=== PATIENT | female | born 1975 | race Caucasian/White ===

== ENCOUNTER 2017-06-15 08:53 | Inpatient (IN) | payer BC ==
--- NOTE | 2017-06-15 09:31 | PDOC ---
Attending Attestation - Resident Resident Name: Lyssa Anthony - HPI HPI: 06/15/17 11:15 Pt presents to the ED complaining of left breast pain and tenderness that began 4 days ago. Patient has been taking cipro for the last two days, but the redness, pain and swelling have continued to worsen. Denies fever, nausea and vomiting or other signs of systemic infection. Of note, patient reports a long standing history of a breast cyst in the same location. Patient also has a history of chronic uncontrolled DM. Reports non compliance with her metformin. - Physicial Exam PE: 06/15/17 11:17 Agree with resident exam. L breast has an area of cellulitis that is approximately 6 cm in diameter and an area of induration that is approximately 2 cm in diameter. PAtient is awake, alert and well appearing. - Medical Decision Making 06/15/17 11:18 Pt presents to the ED with cellulitis and likely abscess of the left breast. Will obtain repeat US, likely do I and D, discuss with CURATOR OF COLLECTIONS. Patient also has apparent failure of outpatient antibiotics---will treat with Iv ceftraxione and admit for obs.
--- NOTE | 2017-06-15 09:55 | PDOC ---
History of Present Illness - General Chief Complaint: Abscess Boil Stated Complaint: ABSCESS ON LT BREAST Time Seen by Provider: 06/15/17 09:20 History Source: Patient Exam Limitations: No Limitations - History of Present Illness Initial Comments: This is a YOF with h/o NIDDM (non-adherent to Metformin regimen) and known chronic left breast cyst who p/w 4 days of worsening pain, swelling, redness, warmth, and a worsening lump to her left medial breast in the same location as her known cyst. She has been on ciprofloxacin for the past two days without improvement. She has never had an abscess or skin infection in her life. She notes difficulty taking in a full breath secondary to the pain, as well as slight swelling of a lymph node in her left axilla, but denies any additional symptoms (no fever, chills, nausea, vomiting, additional rashes or skin lesions , headache, dizziness, or other symptoms. Past History - Past Medical History Allergies/Adverse Reactions: Allergies Allergy/AdvReac Type Severity Reaction Status Date / Time No Known Drug Allergies Allergy Verified 06/15/17 09:03 Home Medications: Ambulatory Orders Ciprofloxacin [Cipro (Restricted To Id)] 500 mg PO BID 06/15/17 Anemia: Yes ("FROM HEAVY MENSTRAL BLEEDING") Asthma: No Cancer: No Cardiac Disorders: No CVA: No COPD: No CHF: No Dementia: No Diabetes: Yes (non compliant with medication) GI Disorders: No Disorders: No HTN: No Hypercholesterolemia: No Liver Disease: No Seizures: No Thyroid Disease: No - Surgical History Abdominal Surgery: No Appendectomy: No Cardiac Surgery: No Cholecystectomy: No Lung Surgery: No Neurologic Surgery: No Orthopedic Surgery: No - Suicide/Smoking/Psychosocial Hx Smoking History: Never smoked Have you smoked in the past 12 months: No Hx Alcohol Use: No Drug/Substance Use Hx: No Substance Use Type: None Review of Systems - Review of Systems Able to Perform ROS?: Yes Constitutional: No: Chills, Fever, Unexplained wgt Loss HEENTM: No: Nose Congestion, Throat Pain Respiratory: No: Cough, Shortness of Breath Cardiac (ROS): Yes: Other (left breast pain). No: Chest Pain, Palpitations ABD/GI: No: Constipated, Diarrhea, Nausea, Vomiting : No: Burning, Dysuria Musculoskeletal: No: Back Pain, Neck Pain Integumentary: Yes: Other (left breast pain/swelling). No: Bruising, Rash Neurological: No: Headache, Numbness, Tingling, Weakness, Dizziness Endocrine: No: Unexplained Weight Gain, Unexplained Weight Loss Hematologic/Lymphatic: Yes: Lymph Node Abnormalities (left axilla swollen lymph node) *Physical Exam - Vital Signs Last Vital Signs Temp Pulse Resp BP Pulse Ox 97.6 F 89 18 124/73 96 06/15/17 08:58 06/15/17 08:58 06/15/17 08:58 06/15/17 08:58 06/15/17 08:58 - Physical Exam General Appearance: Yes: Nourished, Appropriately Dressed, Obese, Other (awake and alert adult female accompanied by family member at bedside, answering questions appropriately). No: Apparent Distress HEENT: positive: EOMI, Normal Voice, Hearing Grossly Normal. negative: Scleral Icterus (R), Scleral Icterus (L), Nasal Congestion Neck: positive: Trachea midline, Supple. negative: Tender, Rigid Respiratory/Chest: positive: Lungs Clear, Normal Breath Sounds. negative: Respiratory Distress, Crackles, Rhonchi, Stridor, Wheezing Cardiovascular: positive: Regular Rhythm, Regular Rate, S1, S2. negative: Edema , JVD, Murmur Gastrointestinal/Abdominal: positive: Normal Bowel Sounds, Soft. negative: Tender, Organomegaly, Pulsatile Mass, Guarding Lymphatic: positive: Adenopathy (left axilla), Tenderness (left axilla) Musculoskeletal: positive: Normal Inspection. negative: Decreased Range of Motion, Vertebral Tenderness Extremity: positive: Normal Capillary Refill, Normal Inspection, Normal Range of Motion. negative: Tender, Cyanosis Integumentary: positive: Dry, Warm, Other (left medial breast (just lateral to the sternum) with 8x5cm area of erythema/warmth with central 2x2cm area of induration and fluctuance with bright red erythema). negative: Bruising Neurologic: positive: intellectual property paralegal II-XII NML intact (grossly), Fully Oriented, Alert, Normal Mood/Affect, Normal Response, Motor Strength 5/5 ED Treatment Course - LABORATORY CBC & Chemistry Diagram: 06/15/17 09:45 06/15/17 09:45 - ADDITIONAL ORDERS Additional order review: Laboratory Results 06/15/17 09:21 POC Glucometer 240.01706 06/15/17 09:21 POC Glucometer [id number] - RADIOLOGY Radiology Studies Ordered: Category Date Time Status BREAST US LEFT LIMITED [US] Stat Ultrasound 06/15/17 09:33 Ordered Medical Decision Making - Medical Decision Making 41 YOF with h/o NIDDM (non-adherent to metformin regimen) who p/w left breast painful mass x4 days. VS wnl, patient in mild distress, ttp medial left breast, skin is inflamed, induration/fluctuance with surrounding cellulitis. Ordered is [facility] CMP US left breast, blood culture, ceftriaxone, Percocet. 06/15/17 12:50 Called [id number], cannot get in touch. Ordered Toradol as Pt c/o pain. 06/15/17 12:58 Spoke with Ultrasound, they also are unable to get ahold of [facility]. They note that at times they send these studies to [facility] during the day and I ask them to do this. 06/15/17 13:[address] Acosta who recommends consult with Gen Surg for I&D. Spoke with Dr. Coy who will come to the ED for I&D shortly. *DC/Admit/Observation/Transfer Diagnosis at time of Disposition: Breast abscess, Hyperglycemia Diabetes mellitus Qualifiers: Diabetes mellitus type: other specified (including VONNIE) Diabetes mellitus complication status: with unspecified complications Diabetes mellitus joint terminal attack controller insulin use: unspecified skilled nursing insulin use status Qualified Code(s): E13.8 - Other specified diabetes mellitus with unspecified complications - Discharge Dispostion Condition at time of disposition: Guarded Admit: Yes - Referrals Referrals: Marcellus Edwards MD [Primary Care Provider] - - Patient Instructions - Post Discharge Activity
[2017-06-15 09:57] LABS: BASO % 0.5 % (0-2.0); EOS % 0.7 % (0-4.5); HEMATOCRIT 35.2 % (32.4-45.2); HEMOGLOBIN 10.9 GM/dL (10.7-15.3); LYMPH % 17.7 % (8-40); MCH 22.4 pg (25.7-33.7); MEAN CELL VOLUME 72.3 fl (80-96); MEAN PLT VOLUME 8.8 fl (7.5-11.1); MONO % 4.5 % (3.8-10.2); NEUT % 76.6 % (42.8-82.8); PLATELET COUNT 230 K/MM3 (134-434); RBC 4.87 M/mm3 (3.60-5.2); RDW 15.5 % (11.6-15.6)
[2017-06-15 10:22] LABS: ALBUMIN 3.2 g/dl (3.4-5.0); ALK PHOS 66 U/L (45-117); ANION GAP 7 (8-16); BILIRUBIN,TOTAL 0.2 mg/dL (0.2-1.0); BLOOD UREA NITROGEN 6 mg/dL (7-18); CALCIUM 7.8 mg/dL (8.5-10.1); CHLORIDE 104 mmol/L (98-107); CO2 25 mmol/L (21-32); CREATININE 0.5 mg/dL (0.55-1.02); GLUCOSE,RANDOM 213 mg/dL (74-106); POTASSIUM 3.9 mmol/L (3.5-5.1); SGOT/AST 10 U/L (15-37); SGPT/ALT 35 U/L (12-78); SODIUM 136 mmol/L (136-145); TOT PROT 6.9 g/dl (6.4-8.2)
[2017-06-15] MEDS ORDERED: CEFTRIAXONE 1 GM in DEXTROSE 5%-WATER - 50 ML IVPB ONE (11:13)
[2017-06-15] MEDS ORDERED: CEFTRIAXONE 1 GM/50 ML BAG ONE (11:27)
[2017-06-15] MEDS ORDERED: KETOROLAC TROMETHAMINE 30 MG/1 ML VIAL ONE (12:29)
[2017-06-15] MEDS ORDERED: KETOROLAC TROMETHAMINE 30 MG/1 ML VIAL IVPUSH ONE (12:39)
[2017-06-15] MEDS ORDERED: VANCOMYCIN 1 GRAM (PRE-DOCKED) 1,000 MG/250 ML BAG IVPB ONE ×2 (13:46→14:18)
--- NOTE | 2017-06-15 15:59 | CONSULT ---
Consult Consult Specialty:: General Surgery Referred by:: Lyssa Anthony Reason for Consultation:: L medial breast abscess - History of Present Illness Chief Complaint: L medial breast/chest wall swelling, redness, pain, hardness History of Present Illness: 41yo diabetic F, not taking medications for diabetes, had known cyst in medial L breast on prior US several years ago. The area had begun getting pink and itching last Friday, and she saw her PMD Dr. Edwards on . Dr. Edwards told her she had a skin infection and gave her metformin 500mg bid, which she has not been taking, and Ciprofloxacin 500mg bid, of which she has had 3 doses. She was also given a referral to a doctor and has an appointment for tomorrow, but the area continued to get pinker/redder, more swollen, and harder and more painful, so she came to ER. It has not drained anything, but she has noticed an odor recently as well. In the ER, her wbc was 10, and she is afebrile. US does show a collection in the area of the known cyst with internal debris and surrounding erythema (report pending). She denies F/C, N/V, but has had pain and some trouble breathing because of the pain. Surgery is consulted for possible drainage of left breast abscess. - History Source History Provided By: Patient Limitations to Obtaining History: No Limitations - Past Medical History Reproductive: Yes: Fibroids, Other (L breast cyst known) ...: No Endocrine: Yes: Diabetes Mellitus (not taking meds but supposed to) - Past Surgical History Past Surgical History: Yes: (x2) Additional Surgical History: laparoscopic fibroid operations, vaginal fibroidectomy in March 2017 - Alcohol/Substance Use Hx Alcohol Use: Yes (rare) History of Substance Use: reports: None - Smoking History Smoking history: Current some day smoker Have you smoked in the past 12 months: Yes Aproximately how many cigarettes per day: 0 (rare social use/q few mos) - Social History Usual Living Arrangement: With Spouse (and children) ADL: Independent 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 Edwards ; supposed to be taking metformin 500mg bid or 1000mg daily - not yet taken Family Disease History - Family Disease History Family History: Unremarkable (noncontributory) Review of Systems - Review of Systems Constitutional: denies: Chills, Fever Eyes: reports: Other (wears glasses). denies: Recent Change in Vision HENT: denies: Difficult Swallowing, Nasal Congestion, Throat Pain Neck: denies: Swollen Glands, Tenderness Cardiovascular: denies: Chest Pain, Palpitations Respiratory: reports: Other (pain with breathing because of abscess on chest). denies: Cough, SOB Gastrointestinal: reports: Diarrhea (one episode after started cipro at home). denies: Abdominal Pain, Constipation, Nausea, Vomiting Genitourinary: denies: Burning, Dysuria Breasts: reports: See HPI Musculoskeletal: reports: Other (R heel pain, saw salvage mend worker recently and had MRI yesterday). denies: Back Pain, Joint Pain, Muscle Pain Integumentary: reports: Erythema, Lump Neurological: reports: Headache (just now, not before). denies: Dizziness Psychiatric: denies: Anxiety, Depression Physical Exam Vital Signs: Vital Signs Temperature 98.2 F 06/15/17 13:22 Pulse Rate 81 06/15/17 13:22 Respiratory Rate 18 06/15/17 13:22 Blood Pressure 102/54 06/15/17 13:22 O2 Sat by Pulse Oximetry (%) 97 06/15/17 13:22 Constitutional: Yes: No Distress, Calm, Obese Eyes: Yes: Conjunctiva Clear, EOM Intact HENT: Yes: Atraumatic, Normocephalic Neck: Yes: Supple, Trachea Midline Cardiovascular: Yes: Regular Rate and Rhythm. No: Murmur Respiratory: Yes: Regular, CTA Bilaterally Gastrointestinal: Yes: Soft, Abdomen, Obese, Other (well healed pfannenstiel scar). No: Tenderness ...Rectal Exam: Yes: Deferred Renal/: No: CVA Tenderness - Left, CVA Tenderness - Right Breast(s): Yes: Skin Changes, Other (L medial aspect just at medial end of inframammary fold with indurated, erythematous, tender swelling, with surrounding erythema over several cm laterally and inferiorly, with mild peau d' orange secondary to edema locally) Musculoskeletal: No: Joint Stiffness, Joint Swelling Extremities: No: Cool, Cyanosis Peripheral Pulses WNL: Yes Integumentary: Yes: Other (see breast section). No: Jaundice, Rash Neurological: Yes: Alert, Oriented Psychiatric: Yes: Alert, Oriented Labs: CBC, BMP 06/15/17 09:45 06/15/17 09:45 Imaging - Results Ultrasound: Image Reviewed (small fluid collection with some internal debris and surrounding edema at site of skin changes, same place as cyst present on previous US from few yrs ago) Problem List - Problems (1) Abscess of left breast Assessment/Plan: abscess, likely infected cyst, of left medial breast just at/above inframammary fold with surrounding cellulitis on medial breast Vanco, Ceftriaxone given by ER with pain meds Discussed with patient risks, benefits and alternatives of incision and drainage of left breast abscess, including but not limited to bleeding and infection. Patient agreeable to procedure under local anesthetic; performed at bedside - see separate procedure note. Culture of pus sent to micro. Pt to stay OBS status under hospitalist for IV antibiotics and glucose control Pain meds prn and for dressing changes. Pt will need VNS arranged by SW/JUDI for daily wound care with packing changes on discharge home: 1/2" iodoform, rest of bottle and suture removal kit given to patient instructions will be in d/c plan Pt will call for appt to f/u in clinic in ~10 days. Needs antibiotics to cover MRSA, GP and GN until culture results back - recommend ID for Vanco/Zosyn for now Will follow for daily dressings/packing changes. Thank you for the opportunity to participate in the care of this patient. Code(s): N61.1 - ABSCESS OF THE BREAST AND NIPPLE (2) Cyst of breast, left, solitary Assessment/Plan: cyst wall apparent in wound, partially removed - abscess secondary to infected cyst Code(s): N60.02 - SOLITARY CYST OF LEFT BREAST (3) Diabetes mellitus with skin complication, without long-term current use of insulin Assessment/Plan: strongly advised patient that she needs to take meds as prescribed and monitor glucose at home mgmt per medical team Code(s): E11.628 - TYPE 2 DIABETES MELLITUS WITH OTHER SKIN COMPLICATIONS Qualifiers: Diabetes mellitus type: type 2 Diabetes mellitus complication detail: with other skin complication Qualified Code(s): E11.628 - Type 2 diabetes mellitus with other skin complications (4) Obesity (BMI 35.0-39.9 without comorbidity) Code(s): E66.9 - OBESITY, UNSPECIFIED
--- NOTE | 2017-06-15 16:58 | PROC ---
Incision and Drainage Indication/Location: left medial breast/chest wall abscess Risks and Benefits Explained: Yes Consent on Chart: No (verbal consent obtained) Betadine cleansed: Yes Anesthesia: 1% Lidocaine w/ Epi Blade Size: 15 Drainage: pus with some cheesy content - culture sent, part of cyst wall excised from periphery Irrigated with Normal Saline: No (irrigated with local) Iodinated Packin/2 in Sterile Dressing Applied: Yes - Remarks Remarks: very thin ellipse of skin removed to facilitate access for packing; portion of cyst wall and contents removed, all loculations broken up manually, drainage consistent with infected cyst
[2017-06-15 18:31] VITALS: BMI 39.3
--- NOTE | 2017-06-15 18:35 | HP ---
CHIEF COMPLAINT: breast abscess PCP:jolene HISTORY OF PRESENT ILLNESS: 41yo F with PMH breast cyst and DM (which she refuses to take medications) and morbid obesity presented to the ER with L breast swelling and pain. Noted to have redness and swelling x4days ago. Saw her PMD on which she started her on keflex which she only took 3 doses of. states the area started to be more swollen and the erythema started to spread across her breast. area also got very firm and painful. Continues to have pain after I&D however better than previously. denies Cp, SOB, fever, chills rigors, N/V/C/D. known to have a breast cyst in the same area which has increased over the years. never required I&D of breast in the past. ER course was notable for: (1) I&D in the ER by surgery with pus drainage (2) (3) Recent Travel:[place] PAST MEDICAL HISTORY:breast cyst, fibroids, DM PAST SURGICAL HISTORY:fibroidectomy Social History: Smoking:social (once every 3 months) Alcohol:social (once every 3 months) Drugs: denies, no MARISEL Family History:DM Allergies No Known Drug Allergies Allergy (Verified 06/15/17 09:03) HOME MEDICATIONS: Home Medications Medication Instructions Recorded Ciprofloxacin [Cipro (Restricted 500 mg PO BID 06/15/17 To Id)] REVIEW OF SYSTEMS CONSTITUTIONAL: Absent: fever, chills, diaphoresis, generalized weakness, malaise, loss of appetite, weight change HEENT: Absent: rhinorrhea, nasal congestion, throat pain, throat swelling, difficulty swallowing, mouth swelling, ear pain, eye pain, visual changes CARDIOVASCULAR: Absent: chest pain, syncope, palpitations, irregular heart rate, lightheadedness , peripheral edema RESPIRATORY: Absent: cough, shortness of breath, dyspnea with exertion, orthopnea, wheezing, stridor, hemoptysis GASTROINTESTINAL: Absent: abdominal pain, abdominal distension, nausea, vomiting, diarrhea, constipation, melena, hematochezia GENITOURINARY: Absent: dysuria, frequency, urgency, hesitancy, hematuria, flank pain, genital pain MUSCULOSKELETAL: Absent: myalgia, arthralgia, joint swelling, back pain, neck pain SKIN: erythema, swelling, tenderness to L breast Absent: rash, itching, pallor HEMATOLOGIC/IMMUNOLOGIC: Absent: easy bleeding, easy bruising, lymphadenopathy, frequent infections ENDOCRINE: Absent: unexplained weight gain, unexplained weight loss, heat intolerance, cold intolerance NEUROLOGIC: Absent: headache, focal weakness or paresthesias, dizziness, unsteady gait, seizure, mental status changes, bladder or bowel incontinence PSYCHIATRIC: Absent: anxiety, depression, suicidal or homicidal ideation, hallucinations. PHYSICAL EXAMINATION Vital Signs - 24 hr 06/15/17 06/15/17 06/15/17 08:58 13:22 17:50 Temperature 97.6 F 98.2 F 98.0 F Pulse Rate 89 Pulse Rate [ 81 73 Left Radial] Respiratory 18 18 18 Rate Blood Pressure 124/73 Blood Pressure 102/54 130/79 [Right Arm] O2 Sat by Pulse 96 97 99 Oximetry (%) GENERAL: Awake, alert, and fully oriented, in no acute distress. HEAD: Normal with no signs of trauma. EYES: Pupils equal, round and reactive to light, extraocular movements intact, sclera anicteric, conjunctiva clear. No lid lag. EARS, NOSE, THROAT: Ears normal, nares patent, oropharynx clear without exudates. Moist mucous membranes. NECK: Normal range of motion, supple without lymphadenopathy, JVD, or masses. LUNGS: Breath sounds equal, clear to auscultation bilaterally. No wheezes, and no crackles. No accessory muscle use. HEART: Regular rate and rhythm, normal S1 and S2 without murmur, rub or gallop. ABDOMEN: Soft, nontender, not distended, normoactive bowel sounds, no guarding, no rebound, no masses. No hepatomegaly or splenomegaly. obese MUSCULOSKELETAL: Normal range of motion at all joints. No bony deformities or tenderness. No CVA tenderness. UPPER EXTREMITIES: 2+ pulses, warm, well-perfused. No cyanosis. No clubbing. No peripheral edema. LOWER EXTREMITIES: 2+ pulses, warm, well-perfused. No calf tenderness. No peripheral edema. NEUROLOGICAL: Cranial nerves II-XII intact. Normal speech. Normal gait. PSYCHIATRIC: Cooperative. Good eye contact. Appropriate mood and affect. SKIN: Warm, dry, normal turgor, no rashes or lesions noted, normal capillary refill. mid L breast fold with packing, some dried blood, surrounding area erythematous and warm. L medial side of breast very firm and tender, erythema extending to areola. dense breast tissue B/L no tenderness/warmth/erythema noted to R breast Laboratory Results - last 24 hr 06/15/17 06/15/17 06/15/17 09:21 09:43 09:45 WBC 10.0 RBC 4.87 Hgb 10.9 Hct 35.2 MCV 72.3 L MCH 22.4 L MCHC 31.0 L RDW 15.5 D Plt Count 230 MPV 8.8 Neutrophils % 76.6 Lymphocytes % 17.7 D Monocytes % 4.5 Eosinophils % 0.7 Basophils % 0.5 Sodium Potassium Chloride Carbon Dioxide Anion Gap BUN Creatinine Creat Clearance w eGFR POC Glucometer [id number] Random Glucose Calcium Total Bilirubin AST ALT Alkaline Phosphatase Total Protein Albumin Serum , Qual Negative 06/15/17 09:45 WBC RBC Hgb Hct MCV MCH MCHC RDW Plt Count MPV Neutrophils % Lymphocytes % Monocytes % Eosinophils % Basophils % Sodium 136 Potassium 3.9 Chloride 104 Carbon Dioxide 25 Anion Gap 7 L BUN 6 L Creatinine 0.5 L Creat Clearance w eGFR > 60 POC Glucometer Random Glucose 213 H Calcium 7.8 L Total Bilirubin 0.2 AST 10 L ALT 35 Alkaline Phosphatase 66 Total Protein 6.9 Albumin 3.2 L Serum , Qual ASSESSMENT/PLAN: 41 yo F with PMH DM, breast cyst and fibroids and morbid obesity presented to the ER with L breast infection. 1. Acute L breast abscess with surrounding cellulitis- medicine admission. s/p I &D in the ER by gen surg. Cx sent to micro. received Vanco and ceftriaxone in the ER. will switch to clinda and Unasyn. pain control. will f/u Cx. f/u official U/s report 2. DM- a1c per pt 10.9. has known she is diabetic for past year but has been in denial about starting medications. counselled on risks of uncontrolled DM and high risk of mortality. pt does not want insulin. call pharmacy to confirm medication that was started by primary. start BGM, ISS for now. nutritional consult. BGM teaching by RN 3. Morbid obesity- BMI 39.5 lifestyle modifications. weight loss goal 1lb/week. nutritional eval 4. fibroids- s/p multiple surgies. f/u SENIOR UI DESIGNER outpatient 5. DVT ppx- start lovenox
[2017-06-15] MEDS ORDERED: oxyCODONE HCL 5 MG TABLET ONE (18:45)
[2017-06-15] MEDS: oxyCODONE HCL 5 MG TABLET PO PRN (18:48)
[2017-06-15] MEDS: ACETAMINOPHEN 325 MG TABLET (FP) PO PRN (20:00)
[2017-06-15] MEDS ORDERED: ACETAMINOPHEN 325 MG TABLET (FP) ONE (20:13)
[2017-06-15] MEDS: AMPICILLIN NA/SULBACTAM NA 3 GM in SODIUM CHLORIDE 100 ML IVPB SCH (22:50)
[2017-06-15] MEDS: INSULIN SLIDING SCALE (NOVOLOG) 1 VIAL SQ SCH (23:26)
[2017-06-16] MEDS ORDERED: ACETAMINOPHEN 325 MG TABLET (FP) ONE ×2 (01:28→07:04)
[2017-06-16] MEDS ORDERED: oxyCODONE HCL 5 MG TABLET ONE ×2 (01:28→07:04)
[2017-06-16] MEDS: oxyCODONE HCL 5 MG TABLET PO PRN ×4 (01:46→21:13)
[2017-06-16] MEDS: ACETAMINOPHEN 325 MG TABLET (FP) PO PRN ×3 (01:46→21:14)
[2017-06-16] MEDS: CLINDAMYCIN 600MG PREMIX IVPB 600 MG/50 ML BAG IVPB SCH ×3 (01:47→17:31)
[2017-06-16] MEDS: AMPICILLIN NA/SULBACTAM NA 3 GM in SODIUM CHLORIDE 100 ML IVPB SCH ×4 (02:38→20:05)
[2017-06-16] MEDS: INSULIN SLIDING SCALE (NOVOLOG) 1 VIAL SQ SCH ×4 (07:36→21:02)
[2017-06-16 07:55] LABS: BASO % 0.6 % (0-2.0); EOS % 0.8 % (0-4.5); HEMATOCRIT 34.6 % (32.4-45.2); HEMOGLOBIN 10.9 GM/dL (10.7-15.3); LYMPH % 23.8 % (8-40); MCH 22.5 pg (25.7-33.7); MCHC 31.4 g/dl (32.0-36.0); MEAN CELL VOLUME 71.7 fl (80-96); MEAN PLT VOLUME 9.1 fl (7.5-11.1); MONO % 5.6 % (3.8-10.2); NEUT % 69.2 % (42.8-82.8); PLATELET COUNT 238 K/MM3 (134-434); RBC 4.82 M/mm3 (3.60-5.2); RDW 15.5 % (11.6-15.6); WHITE BLOOD COUNT 8.4 K/mm3 (4.0-10.0)
[2017-06-16 08:09] LABS: ALBUMIN 3.1 g/dl (3.4-5.0); ALK PHOS 68 U/L (45-117); ANION GAP 7 (8-16); BILIRUBIN,TOTAL 0.4 mg/dL (0.2-1.0); BLOOD UREA NITROGEN 7 mg/dL (7-18); CALCIUM 7.9 mg/dL (8.5-10.1); CHLORIDE 105 mmol/L (98-107); CO2 25 mmol/L (21-32); CREATININE 0.5 mg/dL (0.55-1.02); GLUCOSE,RANDOM 207 mg/dL (74-106); POTASSIUM 4.1 mmol/L (3.5-5.1); SGOT/AST 9 U/L (15-37); SGPT/ALT 32 U/L (12-78); SODIUM 137 mmol/L (136-145)
[2017-06-16 08:10] LABS: TOT PROT 6.7 g/dl (6.4-8.2)
[2017-06-16] MEDS: ENOXAPARIN NA (PORCINE) 40 MG/0.4 ML DISP.SYRIN SQ SCH (10:08)
--- NOTE | 2017-06-16 16:19 | PN ---
Progress Note (short form) - Note Progress Note: Pt s/p I&D of L medial breast abscess with cellulitis, on Clinda and Unasyn. Pain managed with Percocet, still with some pain but getting better. No fevers. Wbc down to 8. Wound GS shows GPC in clusters, culture pending. Vital Signs Period Temp Pulse Resp BP Sys/Clemons Pulse Ox Last 24 Hr 97.9 F-98.7 F 73-87 18-22 113-141/49-90 99-99 PE: A&O no rash, L arm medial antecubital area with mild swelling from IV infiltration, no discoloration moving well, no focal deficits L medial chest wall dressing soaked with serosang drainage, removed - medial breast wound, packing removed, tolerated fairly well wound is clean, no bleeding or purulence mostly red base surrounding cellulitis nearly all resolved, minimal local induration, no marked erythema, tissues softer with much less edema CBC, BMP 06/16/17 07:15 06/16/17 07:15 sugars still high Microbiology 06/15/17 16:45 Gram Stain - Final Breast - Left 06/15/17 09:45 Blood Culture - Preliminary Blood - Peripheral Venous NO GROWTH OBTAINED AFTER 24 HOURS, INCUBATION TO CONTINUE FOR 4 DAYS. 06/15/17 09:45 Blood Culture - Preliminary Blood - Peripheral Venous NO GROWTH OBTAINED AFTER 24 HOURS, INCUBATION TO CONTINUE FOR 4 DAYS. 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, cellulitis nearly resolved pain manageable with tylenol and percocet dressing changed - wound repacked with 1/2" iodoform, covered with gauze and tape continue antibiotics await culture results to change to oral abx and d/c home with VNS will do dressing change tomorrow am VNS will need to do daily packing changes as above after first VNS dressing, pt may coordinate with nurse to shower daily with dressing/packing OUT of wound, pat area dry, and have it repacked shortly thereafter pt has packing ribbon, scissors/forceps, and paper tape in room to take home will need to get gauze for home use - 2x2's or 4x4's instructions in discharge plan pt to f/u with mt Wed 06/25 - will call for clinic appt Problem List - Problems (1) Abscess of left breast Code(s): N61.1 - ABSCESS OF THE BREAST AND NIPPLE (2) Cyst of breast, left, solitary Code(s): N60.02 - SOLITARY CYST OF LEFT BREAST (3) Diabetes mellitus with skin complication, without long-term current use of insulin Code(s): E11.628 - TYPE 2 DIABETES MELLITUS WITH OTHER SKIN COMPLICATIONS Qualifiers: Diabetes mellitus type: type 2 Diabetes mellitus complication detail: with other skin complication Qualified Code(s): E11.628 - Type 2 diabetes mellitus with other skin complications (4) Obesity (BMI 35.0-39.9 without comorbidity) Code(s): E66.9 - OBESITY, UNSPECIFIED
--- NOTE | 2017-06-16 16:40 | PN ---
Teaching Attending Note Name of Resident: Davon Tian ATTENDING PHYSICIAN STATEMENT I saw and evaluated the patient. I reviewed the resident's note and discussed the case with the resident. I agree with the resident's findings and plan as documented. SUBJECTIVE:c/o excruciating pain after bandage change done by surgeon. no relief with pain medication. unable to move due to the pain. denies CP, SOB, fever, chills, N/V/C/D OBJECTIVE: Last Vital Signs Temp Pulse Resp BP Pulse Ox 98.7 F 87 22 122/71 99 06/16/17 14:15 06/16/17 14:15 06/16/17 14:15 06/16/17 14:15 06/16/17 13:00 General mild distress due to pain Skin slight erythema surrounding bandage, refused my exam of area ASSESSMENT AND PLAN: 41 yo F with PMH DM, breast cyst and fibroids and morbid obesity presented to the ER with L breast infection. 1. Acute L breast abscess with surrounding cellulitis- s/p I&D 06/15. with packing change. no relief with pain medications. believe pt is in actual pain and not drug seeking. will give morphine 2mg IV x1. will cont unasyn/clinda day2. await official cx report. 2. DM- a1c per pt 10.9. will start metformin 1g daily. as instructed by PMD which she has not started yet. refusing insulin. counseled on need for medication and dietary complaince or infection will not heal and will suffer from complication of DM. nutritional consult. BGM teaching by RN 3. Morbid obesity- BMI 39.5 lifestyle modifications. weight loss goal 1lb/week. nutritional eval 4. Microcytosis- likely anemia with hx of metomenorrhagia. was told to take iron suppleemts and never followed up. check iron studies. start iron supplements if needed 5. fibroids- s/p multiple surgies. 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 DVT ppx- lovenox 7. d/c home liekly tomorrow with VNS
[2017-06-16] MEDS ORDERED: MORPHINE SULFATE 10 MG/1 ML *VIAL IVPUSH ONE (17:15)
--- NOTE | 2017-06-16 17:18 | PN ---
Physical Exam: SUBJECTIVE: Patient seen and examined. Patient complaining of pain after I&D done by surgeon. She denies chest pain, sob, LE pain, fevers, chills, nausea, vomiting and dizziness. OBJECTIVE: Vital Signs Period Temp Pulse Resp BP Sys/Clemons Pulse Ox Last 24 Hr 97.9 F-98.7 F 73-87 18-22 113-141/49-90 99-99 Refused physical exam. Wanted a female physician. Laboratory Results - last 24 hr 06/15/17 06/16/17 06/16/17 22:43 07:15 07:15 WBC 8.4 RBC 4.82 Hgb 10.9 Hct 34.6 MCV 71.7 L MCH 22.5 L MCHC 31.4 L RDW 15.5 Plt Count 238 MPV 9.1 Neutrophils % 69.2 Lymphocytes % 23.8 D Monocytes % 5.6 Eosinophils % 0.8 Basophils % 0.6 Sodium 137 Potassium 4.1 Chloride 105 Carbon Dioxide 25 Anion Gap 7 L BUN 7 Creatinine 0.5 L Creat Clearance w eGFR > 60 POC Glucometer > 400 Random Glucose 207 H Calcium 7.9 L Total Bilirubin 0.4 D AST 9 L ALT 32 Alkaline Phosphatase 68 Total Protein 6.7 Albumin 3.1 L 06/16/17 06/16/17 06/16/17 07:17 11:29 16:50 WBC RBC Hgb Hct MCV MCH MCHC RDW Plt Count MPV Neutrophils % Lymphocytes % Monocytes % Eosinophils % Basophils % Sodium Potassium Chloride Carbon Dioxide Anion Gap BUN Creatinine Creat Clearance w eGFR POC Glucometer [phone] 226 Random Glucose Calcium Total Bilirubin AST ALT Alkaline Phosphatase Total Protein Albumin Active Medications Generic Name Dose Route Start Last Admin Trade Name Freq PRN Reason Stop Dose Admin Acetaminophen 650 mg 06/15/17 18:28 06/16/17 10:33 Tylenol - PO 650 mg Q4H PRN Administration FEVER Enoxaparin Sodium 40 mg 06/16/17 10:00 06/16/17 10:08 Lovenox - SQ 40 mg DAILY MITESH Administration Ampicillin Sodium/Sulbactam 100 mls @ 200 mls/hr 06/15/17 21:00 06/16/17 14: 31 Sodium 3 gm/ Sodium Chloride IVPB Not Given Q6H-IV MITESH Clindamycin Phosphate 600 mg in 50 mls @ 100 mls/hr 06/16/17 02:00 06/16/17 10:07 Cleocin 600 Mg Premix Ivpb - IVPB 100 mls/hr Q8H-IV MITESH Administration Insulin Aspart 1 vial 06/15/17 22:00 06/16/17 11:45 Novolog Vial Sliding Scale - SQ 4 units ACHS MITESH Administration Protocol Metformin HCl 1,000 mg 06/16/17 17:13 Glucophage - PO 06/16/17 17:14 ONCE ONE Metformin HCl 1,000 mg 06/17/17 07:00 Glucophage - PO DAILY@0700 [facility] Oxycodone HCl 5 mg 06/15/17 18:28 06/16/17 14:52 Roxicodone - PO 5 mg Q4H PRN Administration PAIN LEVEL 6-10 ASSESSMENT/PLAN: 41 year old morbidly obese F with a PMHx of DM, breast cyst and fibroids, presented to ED with L breast infection and was found to have a left breast abscess with surrounding cellulitis. #L breast abscess with Surrounding Cellulitis -s/p I&D 06/15 with packing change. -Surgery consulted: Dr. Coy -Cont. Day 2 IV abx: Clindamycin, Ampicillin -Follow up cultures -1x dose of IV morphine for pain control #DM - 232 Glucose this morning -HG A1C 10.9 -Said her PCP prescribed insulin but patient is refusing -ISS -BGM -Counseled on importance of medication and dietary compliance. Explained to patient infection will not heal with poor control of DM. -Nutritional consult #Microcytic Anemia -No signs of bleeding -likely anemia with hx of metomenorrhagia -Was told by pcp to take iron supplement but patient never followed up -FU iron studies. -Start iron supplements #Morbid Obesity -BMI 39.5 -lifestyle modification -Weight loss goal 1 lbs a week. -Nutritional eval #Fibroids -F/U outpatient #DVT PPX -Lovenox 40mg Dispo: likely DC in AM with VNS Visit type - Emergency Visit Emergency Visit: Yes ED Registration Date: 06/15/17 Care time: The patient presented to the Emergency Department on the above date and was hospitalized for further evaluation of their emergent condition. - New Patient This patient is new to me today: Yes Date on this admission: 06/16/17 - Critical Care Critical Care patient: No
[2017-06-16] MEDS ORDERED: metFORMIN HCL 500 MG TABLET (FP) PO ONE (17:30)
[2017-06-16] MEDS ORDERED: INSULIN (NOVOLOG) ASPART 100 UNITS/ML 10ML VIAL ONE (20:40)
[2017-06-17] MEDS: oxyCODONE HCL 5 MG TABLET PO PRN ×2 (02:43→06:34)
[2017-06-17] MEDS: AMPICILLIN NA/SULBACTAM NA 3 GM in SODIUM CHLORIDE 100 ML IVPB SCH ×3 (02:43→15:28)
[2017-06-17] MEDS: ACETAMINOPHEN 325 MG TABLET (FP) PO PRN ×3 (02:43→15:27)
[2017-06-17] MEDS: CLINDAMYCIN 600MG PREMIX IVPB 600 MG/50 ML BAG IVPB SCH ×2 (02:43→09:43)
[2017-06-17] MEDS: INSULIN SLIDING SCALE (NOVOLOG) 1 VIAL SQ SCH ×3 (06:32→16:14)
[2017-06-17] MEDS ORDERED: metFORMIN HCL 500 MG TABLET (FP) PO SCH (07:00)
[2017-06-17] MEDS ORDERED: KETOROLAC TROMETHAMINE 15 MG/ML VIAL IVPUSH PRN (07:37)
[2017-06-17] MEDS: ENOXAPARIN NA (PORCINE) 40 MG/0.4 ML DISP.SYRIN SQ SCH (09:43)
--- NOTE | 2017-06-17 11:45 | PN ---
Teaching Attending Note Name of Resident: Mariana Ortega ATTENDING PHYSICIAN STATEMENT Time of evaluation: 10:50 AM I saw and evaluated the patient. I reviewed the resident's note and discussed the case with the resident. I agree with the resident's findings and plan as documented. SUBJECTIVE: Patient seen and examined, left breast symptoms improved, still with some pain but overall better. No new fevers/chills or complaints. OBJECTIVE: Vital Signs Period Temp Pulse Resp BP Sys/Clemons Pulse Ox Last 24 Hr 97.3 F-98.7 F 80-96 20-22 110-139/70-87 99-99 Intake & Output 06/14/17 06/15/17 06/16/17 06/17/17 23:59 23:59 23:59 23:59 Intake Total 0 850 240 Balance 0 850 240 Weight 222 lb General: sitting in bed in no acute distress Breast: 1 cm medial left breast wound in right upper quadrant with packing, soaked with sersanguinous drainage, surrounding induration with minimal tenderness and erythema Home Medication List Medication Instructions Recorded Confirmed Type Atorvastatin Calcium [Lipitor] 10 mg PO DAILY 06/17/17 06/17/17 History Lisinopril [Prinivil] 10 mg PO DAILY 06/17/17 06/17/17 History Metformin HCl [Metformin HCl ER] 500 mg PO BID 06/17/17 06/17/17 History Active Medications Generic Name Dose Route Start Last Admin Trade Name Freq PRN Reason Stop Dose Admin Acetaminophen 650 mg 06/15/17 18:28 06/17/17 06:34 Tylenol - PO 650 mg Q4H PRN Administration FEVER Enoxaparin Sodium 40 mg 06/16/17 10:00 06/17/17 09:43 Lovenox - SQ Not Given DAILY MITESH Ampicillin Sodium/Sulbactam 100 mls @ 200 mls/hr 06/15/17 21:00 06/17/17 09: 43 Sodium 3 gm/ Sodium Chloride IVPB 200 mls/hr Q6H-IV MITESH Administration Clindamycin Phosphate 600 mg in 50 mls @ 100 mls/hr 06/16/17 02:00 06/17/17 09:43 Cleocin 600 Mg Premix Ivpb - IVPB 100 mls/hr Q8H-IV MITESH Administration Insulin Aspart 1 vial 06/15/17 22:00 06/17/17 06:32 Novolog Vial Sliding Scale - SQ 2 units ACHS MITESH Administration Protocol Ketorolac Tromethamine 15 mg 06/17/17 07:37 06/17/17 10:55 Toradol Injection - IVPUSH 06/22/17 07:36 15 mg Q6H PRN Administration PAIN LEVEL 6-10 Metformin HCl 1,000 mg 06/17/17 07:00 06/17/17 06:33 Glucophage - PO 1,000 mg DAILY@0700 [facility] Administration Laboratory Results - last 24 hr 06/16/17 06/16/17 06/17/17 16:50 20:36 05:57 POC Glucometer 226 231 218 Ferritin 06/17/17 07:00 POC Glucometer Ferritin 5.097 L Microbiology 06/15/17 09:45 Blood - Peripheral Venous Blood Culture - Preliminary NO GROWTH OBTAINED AFTER 48 HOURS, INCUBATION TO CONTINUE FOR 3 DAYS. 06/15/17 09:45 Blood - Peripheral Venous Blood Culture - Preliminary NO GROWTH OBTAINED AFTER 48 HOURS, INCUBATION TO CONTINUE FOR 3 DAYS. 06/15/17 16:45 Breast - Left Gram Stain - Final ASSESSMENT AND PLAN: 41 yof PMHx of left breast cyst, poorly controlled DM (from non compliance), Morbid obesity, admitted with Left breast cyst infection with abscess s/p I&D. -Left breast cyst infection with abscess s/p I&D 06/15 -Poorly controlled DM, A1c per patient 10.9 -Morbid obesity -Microcytic anemia Plan: Surgery input appreciated, daily wound packing/care and home VNS. Follow up wound cultures, anticiapte in 24 hours. Taper antibiotics accordingly. Unasyn/clindamycin day 3. Diabetic education, metformin, has declined insulin to PCP per discussion. Stressed importance of blood sugar control, patient agrees to comply and follow up with PCP. Diet/weight loss counseling. Follow up Iron panel. DVTPPX dispo in 24 hours pending wound cultures and VNS arrangements. Plan discussed with patient in detail, all questions answered.
--- NOTE | 2017-06-17 11:51 | PN ---
Physical Exam: SUBJECTIVE: Patient seen and examined. Pt c/o tenderness to abscess area, though pain is improved from yesterday. Pt denies chest pain, sob, fever, chills. No events overnight. OBJECTIVE: Vital Signs Period Temp Pulse Resp BP Sys/Clemons Pulse Ox Last 24 Hr 97.3 F-98.7 F 80-96 20-22 110-139/70-87 99-99 GENERAL: The patient is awake, alert, and fully oriented, in no acute distress. LUNGS: Breath sounds equal, clear to auscultation bilaterally, no wheezes, no crackles, no accessory muscle use. HEART: Regular rate and rhythm, S1, S2 without murmur, rub or gallop. ABDOMEN: Soft, nontender, nondistended, no guarding. EXTREMITIES: Warm, well-perfused, no edema. PSYCH: Normal mood, normal affect. SKIN: Left medial breast fold wound with clean base, diminished surrounding erythema and warmth, continuous still operator to palpation. Wound packed with with dressing soaked with serosanguinous drainage. Laboratory Results - last 24 hr 06/16/17 06/16/17 06/16/17 11:29 16:50 20:36 POC Glucometer 265 226 231 Ferritin 06/17/17 06/17/17 05:57 07:00 POC Glucometer 218 Ferritin 5.097 L Active Medications Generic Name Dose Route Start Last Admin Trade Name Freq PRN Reason Stop Dose Admin Acetaminophen 650 mg 06/15/17 18:28 06/17/17 06:34 Tylenol - PO 650 mg Q4H PRN Administration FEVER Enoxaparin Sodium 40 mg 06/16/17 10:00 06/17/17 09:43 Lovenox - SQ Not Given DAILY MITESH Ampicillin Sodium/Sulbactam 100 mls @ 200 mls/hr 06/15/17 21:00 06/17/17 09: 43 Sodium 3 gm/ Sodium Chloride IVPB 200 mls/hr Q6H-IV MITESH Administration Clindamycin Phosphate 600 mg in 50 mls @ 100 mls/hr 06/16/17 02:00 06/17/17 09:43 Cleocin 600 Mg Premix Ivpb - IVPB 100 mls/hr Q8H-IV MITESH Administration Insulin Aspart 1 vial 06/15/17 22:00 06/17/17 06:32 Novolog Vial Sliding Scale - SQ 2 units ACHS MITESH Administration Protocol Ketorolac Tromethamine 15 mg 06/17/17 07:37 06/17/17 10:55 Toradol Injection - IVPUSH 06/22/17 07:36 15 mg Q6H PRN Administration PAIN LEVEL 6-10 Metformin HCl 1,000 mg 06/17/17 07:00 06/17/17 06:33 Glucophage - PO 1,000 mg DAILY@0700 MITESH Administration ASSESSMENT/PLAN: 41F with PMH of breast cyst, DM, fibroids, presented with Left breast abscess. # Left breast abscess - s/p I&D by Dr. Coy on 06/15/17 - Day 2 of IV Unasyn/Clindamycin - f/u wound culture - plate growth (-) x 24 hrs but broth looks cloudy - pain control with Toradol and Tylenol # DM - Pt counseled on importance of blood glucose control for wound healing. Pt aware of diagnosis, but has declined treatment and dietary changes in the past. Pt acknowledges that she needs to make changes now and is receptive to a Dietary Consult. - Dietary Consult - BGMs - SSI - continue Metformin # microcytosis - likely anemia 2/2 hx of metomenorrhagia - f/u iron studies -> consider adding iron supplement # FEN - Fluids: po - Electrolytes: wnl, continue to monitor - Nutrition: diabetic diet # Prophylaxis - DVT ppx with Lovenox # dispo - likely d/c home tomorrow with VNS Visit type - Emergency Visit Emergency Visit: Yes ED Registration Date: 06/15/17 Care time: The patient presented to the Emergency Department on the above date and was hospitalized for further evaluation of their emergent condition. - New Patient This patient is new to me today: Yes Date on this admission: 06/17/17 - Critical Care Critical Care patient: No
--- NOTE | 2017-06-17 12:14 | PN ---
Progress Note (short form) - Note Progress Note: Pt s/p I&D of L medial breast abscess with cellulitis, on Clinda and Unasyn. No fevers. Pain manageable, got Toradol for dressing change just prior. Wound GS shows GPC in clusters, culture pending; per micro, they are subculturing broth, as nothing is growing on plates, but broth is cloudy. Vital Signs Period Temp Pulse Resp BP Sys/Clemons Pulse Ox Last 24 Hr 97.3 F-98.7 F 80-96 20-22 110-139/70-87 99-99 PE: A&O moving well, no focal deficits L medial chest wall dressing with serosang drainage, removed - medial breast wound, packing removed, tolerated very well wound is clean, no bleeding or purulence mostly red base with some pale areas on surface measures 1.3 x 0.7 x 1cm deep with cavity/undermined to lateral side (~2-5:00) 1.5cm surrounding cellulitis nearly all resolved, tissues softer with no edema, minimal mild erythema over wound area only, minimal induration no new labs Microbiology 06/15/17 16:45 Gram Stain - Final Breast - Left 06/15/17 09:45 Blood Culture - Preliminary Blood - Peripheral Venous NO GROWTH OBTAINED AFTER 24 HOURS, INCUBATION TO CONTINUE FOR 4 DAYS. 06/15/17 09:45 Blood Culture - Preliminary Blood - Peripheral Venous NO GROWTH OBTAINED AFTER 24 HOURS, INCUBATION TO CONTINUE FOR 4 DAYS. A/P: POD2 s/p I&D L breast abscess, was likely infected (known) cyst wound much telephone cleaner, cellulitis nearly all resolved pain manageable with tylenol and percocet dressing changed - wound repacked with 1/2" iodoform, covered with 2x2 gauzes and paper tape await culture results but could d/c home today on po abx: Augmentin 875 bid x 3 days AND Clindamycin 300mg q6H x 5 days if otherwise medically ready for discharge VNS will need to do daily packing changes as above, starting day after discharge after first VNS dressing, pt may coordinate with nurse to shower daily with dressing/packing OUT of wound, pat area dry, and have it repacked shortly thereafter pt has packing ribbon, scissors/forceps, and paper tape in room to take home will need to get gauze for home use - 2x2's (or 4x4's) instructions in discharge plan pt to f/u with me Wed 06/25 - will call for clinic appt Problem List - Problems (1) Abscess of left breast Code(s): N61.1 - ABSCESS OF THE BREAST AND NIPPLE (2) Cyst of breast, left, solitary Code(s): N60.02 - SOLITARY CYST OF LEFT BREAST (3) Diabetes mellitus with skin complication, without long-term current use of insulin Code(s): E11.628 - TYPE 2 DIABETES MELLITUS WITH OTHER SKIN COMPLICATIONS Qualifiers: Diabetes mellitus type: type 2 Diabetes mellitus complication detail: with other skin complication Qualified Code(s): E11.628 - Type 2 diabetes mellitus with other skin complications (4) Obesity (BMI 35.0-39.9 without comorbidity) Code(s): E66.9 - OBESITY, UNSPECIFIED
--- NOTE | 2017-06-17 14:37 | DS ---
Physical Exam: SUBJECTIVE: Patient seen and examined. Pt c/o tenderness to abscess area, though pain is improved from yesterday. Pt denies chest pain, sob, fever, chills. OBJECTIVE: Vital Signs Period Temp Pulse Resp BP Sys/Clemons Pulse Ox Last 24 Hr 97.3 F-98.7 F 80-96 20-22 110-139/70-87 99-99 PHYSICAL EXAM GENERAL: The patient is awake, alert, and fully oriented, in no acute distress. LUNGS: Breath sounds equal, clear to auscultation bilaterally, no wheezes, no crackles, no accessory muscle use. HEART: Regular rate and rhythm, S1, S2 without murmur, rub or gallop. ABDOMEN: Soft, nontender, nondistended, no guarding. EXTREMITIES: Warm, well-perfused, no edema. PSYCH: Normal mood, normal affect. SKIN: Left medial breast fold wound with clean base, diminished surrounding erythema and warmth, yeast distiller to palpation. Wound packed with with dressing soaked with serosanguinous drainage. LABS Laboratory Results - last 24 hr 06/16/17 06/16/17 06/17/17 16:50 20:36 05:57 POC Glucometer 226 231 218 Ferritin 06/17/17 06/17/17 07:00 12:14 POC Glucometer 285 Ferritin 5.097 L HOSPITAL COURSE: Date of Admission:06/15/17 Date of Discharge: 06/17/17 41F with PMH of breast cyst, DM, fibroids, presented with Left breast abscess. Pt received I&D by Dr. Coy on 06/15/17, and was discharged home with VNS to assist with wound care. Pt received IV antibiotics, and was discharged home with po antibiotics. Wound culture results pending, pt will be notified if treatment plan will need to be changed. Pt counseled on importance of blood glucose control for wound healing. Pt aware of diagnosis of diabetes, but has declined treatment and dietary changes in the past. Pt acknowledges that she needs to make lifestyle changes now. Iron panel results are pending, PCP to follow up on results and start oral iron accordingly. 06/15/17 Breast Axilla US -> lesion at 9 oclock increased in size from 08/03/15. Microbiology 06/15/17 09:45 Blood - Peripheral Venous Blood Culture - Preliminary NO GROWTH OBTAINED AFTER 48 HOURS, INCUBATION TO CONTINUE FOR 3 DAYS. 06/15/17 09:45 Blood - Peripheral Venous Blood Culture - Preliminary NO GROWTH OBTAINED AFTER 48 HOURS, INCUBATION TO CONTINUE FOR 3 DAYS. 06/15/17 16:45 Breast - Left Gram Stain - Final Pt stable for discharge home with VNS. Minutes to complete discharge: 37 Discharge Summary Reason For Visit: CELLULITUS OF LEFT BREAST,ABSCESS OF LEFT BREAST Current Active Problems Abscess of left breast (Acute) Breast abscess (Acute) Cellulitis of left breast (Acute) Cyst of breast, left, solitary (Acute) Diabetes mellitus (Acute) Diabetes mellitus with skin complication, without long-term current use of insulin (Acute) Hyperglycemia (Acute) Obesity (BMI 35.0-39.9 without comorbidity) (Acute) Condition: Improved - Instructions Diet, Activity, Other Instructions: - In addition to Dr. Coy's instructions below, you have new medications: - Take your antibiotics: Clindamycin 4 times per day (every 6 hours) for 5 more days, and Augmentin twice per day for 3 more days. - Consider adding an iron supplement daily. - Please continue to take your other home medications as prescribed. - Resume/increase physical activity as tolerated. - Continue to eat a diabetic diet. Postoperative instructions: You had incision and drainage of left breast abscess on 06/15/[address] Cristian Coy of [facility]. Wound care: The wound will need to have the dressing changed daily and the cavity packed with 1/2" iodoform or plain packing ribbon. VNS to do first dressing change at home, then you may coordinate timing to be able to remove dressing and packing and shower daily, just before they come; then pat the incision area dry, and ensure that it can be repacked shortly afterward. Take the packing out BEFORE or IN the shower; soap and water cannot hurt the wound. No bath or swimming until the incision has healed over. Once packed, cover the wound with small/folded gauze and tape to secure. It is ok to wear a bra for comfort and support. Do not put any ointments or creams on the wound. Pain: For pain, you may use and alternate Tylenol (acetaminophen) and/or ibuprofen every 6 hours each as needed; this means that you can take one OR the other at 3-hour intervals. If you are prescribed a Tylenol/narcotic combination for severe pain, use it instead of plain Tylenol as needed and switch back when your pain starts decreasing. Do not take more than 4000mg of acetaminophen in a day. Take medications as prescribed or indicated on the labeling. You may need to take pain medication 30-60 minutes before dressing changes, especially in the first few days. Follow-up: Call Dr. Coy's office at [phone] to make your postop appointment (Sunday 06/25 as advised). Clinic is held in the [facility] on the first floor of [facility]. Call the office if you have: * increasing pain not responsive to pain medication * fever of 101F or higher * vomiting * unusual or increasing bleeding or drainage from wounds * increasing redness or swelling at wound sites Also, see your primary medical doctor (Dr. Edwards) within 1-2 weeks. Referrals: Marcellus Edwards MD [Primary Care Provider] - 1 Week Cristian Coy MD [Staff Physician] - 06/25/17 Disposition: HOME - Home Medications Comprehensive Discharge Medication List: Ambulatory Orders Acetaminophen [Tylenol .Regular Strength -] 650 mg PO Q4H PRN tablet 06/17/17 Amox-Tr/K Cl [Augmentin - 875Mg Tablet] 1 tab PO BID #6 tablet 06/17/17 Atorvastatin Calcium [Lipitor] 10 mg PO DAILY 06/17/17 Clindamycin [Cleocin -] 300 mg PO Q6H #20 capsule 06/17/17 Lisinopril [Prinivil] 10 mg PO DAILY 06/17/17 Metformin HCl [Metformin HCl ER] 500 mg PO BID 06/17/17 This patient is new to me today: Yes Date on this admission: 06/17/17 Emergency Visit: Yes ED Registration Date: 06/15/17 Care time: The patient presented to the Emergency Department on the above date and was hospitalized for further evaluation of their emergent condition. Critical Care patient: No - Discharge Referral Referred to [facility] No
[2017-06-17 15:14] VITALS: BP 121/70; PULSE 83; TEMP 97.5
[2017-06-17] MEDS ORDERED: PT OWN MED DRAWER 7, Y5N ONE (15:24)
[2017-06-18 08:07] LABS: SERUM IRON SATURATION 8 % (15-55); TOTAL IRON BINDING CAPACITY 414 ug/dL (250-450); UIBC 380 ug/dL (131-425)
== END 2017-06-17 16:38 | disposition home health service (06) | DRG 585 ==
LOC: JER 08:53 → JERBED 16:20 → UNDOADMOB 16:44 → OBSVTOIN 18:28 → J5S 06-16 09:22
PROVIDERS: ADMIT Internal Medicine; ATTEND Hospitalist
PROC: 0H9U0ZX Drainage of Left Breast, Open Approach, Diagnostic (ICD-10-PCS; principal; 2017-06-15)
DX: N61.1 Abscess of the breast and nipple (principal); N60.02 Solitary cyst of left breast; E11.9 Type 2 diabetes mellitus without complications; Z68.39 Body mass index [BMI] 39.0-39.9, adult; E11.628 Type 2 diabetes mellitus with other skin complications; E11.65 Type 2 diabetes mellitus with hyperglycemia; E66.01 Morbid (severe) obesity due to excess calories; D50.9 Iron deficiency anemia, unspecified
CPT/HCPCS: 36415; 76642-TC-LT; 80053; 82728; 82962; 83540; 83550; 84703; 85025; 87040; 87070; 87205; 99285-25; G0378

== ENCOUNTER 2018-05-08 09:23 | Emergency (ER) | payer BC ==
[2018-05-08 09:40] VITALS: TEMP 97.4; BMI 38.9
--- NOTE | 2018-05-08 09:54 | PDOC ---
Attending Attestation - Resident Resident Name: Elisha Tian - ED Attending Attestation I have performed the following: I have examined & evaluated the patient, The case was reviewed & discussed with the resident, I agree w/resident's findings & plan, Exceptions are as noted - HPI HPI: 05/08/18 10:11 , fibroids s/p myomectomies, dm, irregular periods, presenst with RLQ and vaginal bleeding. 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 The patient notes she had a myomectomy in March 2017 and still has had occasional heavy periods. She notes that her abdominal pain is located in the right lower quadrant is crampy, intermittent. She endorse mild nausea which states she often has she denies any fever, chills , diarrhea, dysuria, frequency, chest pain, shortness of breath, palpitations. - Physicial Exam PE: 05/08/18 10:37 Abd: No focal tenderness on palpation to abdomen, neg cva tenderness general: no acute distress, well appearing - Medical Decision Making 05/08/18 10:38 ddx includes but not limited to: ovarian cyst, fibroid bleeding no significant tenderness on my eam to suggest appendicitis will ck labs tvus will reassess 05/08/18 14:38 labs reviewed not pregant, not anemic TVUS reviewd, unremarkble pt still has midl discomfort - recommended possible CT to r/o apepndicitis, however pt declines,states she will come back if pain wosens or she has fever/ vomiting or other concerns
--- NOTE | 2018-05-08 10:11 | PDOC ---
History of Present Illness - General Chief Complaint: Vaginal Bleeding Stated Complaint: RT SIDE PAIN Time Seen by Provider: 05/08/18 09:51 History Source: Patient Exam Limitations: No Limitations - History of Present Illness Travel History: No Initial Comments: 05/08/18 10:42 Patient is a 42 year old female with a PMHx of Uterine Fibroids s/p multiple myomectomies, NIDDMII, ovarian cysts with irregular menses who presents here today for RLQ pain and vaginal bleeding that started two days ago. Patient reports sharp and crampy, constant RLQ pain radiating to bilateral flanks, which is a similar pain related to her ovarian cysts, associated with nausea. Patient does report having irregular periods but reports having abnormally heavy period the last three days with "Constant heavy flow," which prompted this hospital visit. Patient denies any injury or trauma to the abdomen Patient otherwise denies any fever, chills, vomiting, palpitations, shortness of breath, chest pain, dizziness, loss of consciousness, dysuria, frequency, melena, hematochezia, hematemesis, hemoptysis. 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 Family Hx: Denies Allergies: NKDA Past History - Past Medical History Allergies/Adverse Reactions: Allergies Allergy/AdvReac Type Severity Reaction Status Date / Time No Known Drug Allergies Allergy Verified 05/08/18 09:36 Home Medications: Ambulatory Orders Acetaminophen [Tylenol .Regular Strength -] 650 mg PO Q4H PRN tablet 06/17/17 Amox-Tr/K Cl [Augmentin - 875Mg Tablet] 1 tab PO BID #6 tablet 06/17/17 Atorvastatin Calcium [Lipitor] 10 mg PO DAILY 06/17/17 Clindamycin [Cleocin -] 300 mg PO Q6H #20 capsule 06/17/17 Lancets 1 each [facility] QID #100 each 06/17/17 Lisinopril [Prinivil] 10 mg PO DAILY 06/17/17 Metformin HCl [Metformin HCl ER] 500 mg PO BID 06/17/17 Miscellaneous Medical Supply [Glucometer Device] 1 each [facility] ASDIR #1 kit Miscellaneous Medical Supply [Glucometer Test Strips #100] 1 each ASDIR #1 box 06/17/17 Anemia: Yes ("FROM HEAVY MENSTRAL BLEEDING") Asthma: No Cancer: No Cardiac Disorders: No CVA: No COPD: No CHF: No Dementia: No Diabetes: Yes (non compliant with medication) GI Disorders: No Disorders: No HTN: No Hypercholesterolemia: No Liver Disease: No Seizures: No Thyroid Disease: No - Surgical History Abdominal Surgery: No Appendectomy: No Cardiac Surgery: No Cholecystectomy: No Lung Surgery: No Neurologic Surgery: No Orthopedic Surgery: No - Suicide/Smoking/Psychosocial Hx Smoking History: Never smoked Have you smoked in the past 12 months: No Number of Cigarettes Smoked Daily: 0 Hx Alcohol Use: No Drug/Substance Use Hx: No Substance Use Type: None Review of Systems - Review of Systems Able to Perform ROS?: Yes Constitutional: No: Chills, Diaphoresis, Fever, Night Sweats HEENTM: No: Nose Congestion, Throat Pain, Difficulty Swallowing Respiratory: No: Cough, Orthopnea, Shortness of Breath, SOB with Exertion, SOB at Rest, Wheezing, Productive cough, Hemoptysis Cardiac (ROS): No: Chest Pain, Lightheadedness, Palpitations, Syncope ABD/GI: Yes: Abdominal cramping (RLQ). No: Abdominal Distended, Nausea, Rectal Bleeding, Vomiting : Yes: Discharge (Vaginal Bleeding ), Flank Pain (B/L ). No: Burning, Dysuria , Frequency Musculoskeletal: No: Back Pain, Gout, Muscle Pain Integumentary: No: Bruising, Erythema, Pruritus Neurological: No: Headache, Numbness, Seizure, Tingling, Tremors *Physical Exam - Vital Signs Last Vital Signs Temp Pulse Resp BP Pulse Ox 97.4 F L 76 19 115/65 96 05/08/18 09:36 05/08/18 09:36 05/08/18 09:36 05/08/18 09:36 05/08/18 09:36 - Physical Exam General Appearance: Yes: Other (Awake, alert, oriented x3, in no acute distress ) HEENT: positive: EOMI, MANINDER, Normal ENT Inspection, Normal Voice, Symmetrical, Pharynx Normal. negative: Tonsillar Exudate, Tonsillar Erythema, Rhinorrhea, Sinus Tenderness Neck: positive: Supple. negative: Carotid bruit, Decreased range of motion, Lymphadenopathy (R), Lymphadenopathy (L) Respiratory/Chest: positive: Lungs Clear, Normal Breath Sounds. negative: Respiratory Distress, Accessory Muscle Use, Labored Respiration, Decreased Breath Sounds, Rhonchi, Wheezing Cardiovascular: positive: Regular Rhythm, Regular Rate, S1, S2. negative: Edema , JVD, Murmur Female Pelvic Exam: positive: vaginal bleeding. negative: discharge, lesions Gastrointestinal/Abdominal: positive: Other (Soft, nontender, nondistended, normoactive bowel sounds, no rebound tenderness or guarding. No organomegaly ) Musculoskeletal: positive: Normal Inspection. negative: CVA Tenderness, CVA Tenderness (R) Extremity: positive: Normal Capillary Refill, Normal Inspection, Normal Range of Motion, Pelvis Stable. negative: Calf Tenderness, Erythema Integumentary: positive: Normal Color, Dry, Warm. negative: Erythema, Jaundice , Diaphoresis Neurologic: positive: shelter advocate II-XII NML intact, Fully Oriented, Alert, Normal Mood/ Affect, Normal Response, Motor Strength 5/5 Moderate Sedation - Procedure Monitoring Vital Signs: Procedure Monitoring Vital Signs Temperature 97.4 F L 05/08/18 09:36 Pulse Rate 76 05/08/18 09:36 Respiratory Rate 05/08/18 09:36 Blood Pressure 115/65 05/08/18 09:36 O2 Sat by Pulse Oximetry (%) 96 05/08/18 09:36 ED Treatment Course - LABORATORY CBC & Chemistry Diagram: 05/08/18 10:25 05/08/18 10:25 Medical Decision Making - Medical Decision Making 05/08/18 10:58 Patient is a 42 year old female who presents here today for RLQ pain and vaginal bleeding that started three days ago. Differential Diagnosis includes but not limited to Uterine Fibroids, ovarian cysts, , ectopic , DUB. -CBC, CMP -Type and screen -B-HCG Qual -U/A and urine culture -Transvaginal U/S -Pelvic exam 05/08/18 11:14 -B-HCG negative -Transvaginal U/S PENDING 05/08/18 13:06 -U/S revealed Multiple small uterine fibroids. -Patient still has RLQ pain but has improved. Recommended CT to rule out any other causes such as appendicitis, however, patient declines. Patient aware that if pain persists or worsens to return to an ED. -Will discharge patient *DC/Admit/Observation/Transfer Diagnosis at time of Disposition: Vaginal bleeding - Discharge Dispostion Disposition: HOME Condition at time of disposition: Stable Decision to Admit order: No - Referrals Referrals: Marcellus Edwards MD [Primary Care Provider] - Naveed Kunz MD [Staff Physician] - Brian Fuentes MD [Staff Physician] - - Patient Instructions Additional Instructions: -You were seen here for vaginal bleeding and right lower abdominal pain. Labs were normal. Ultrasound was done and revealed small uterine fibroids -Recommend you follow up with your OBGYN within a week -If you continue to experience worsening symptoms such as severe vaginal bleeding, abdominal pain, or shortness of breath return to the emergency department immediately - Post Discharge Activity
[2018-05-08] MEDS ORDERED: ONDANSETRON 4 MG TABLET PO ONE (10:39)
[2018-05-08] MEDS ORDERED: ACETAMINOPHEN 325 MG TABLET (FP) PO ONE (10:39)
[2018-05-08 10:40] LABS: BASO % 1.3 % (0-2.0); EOS % 0.7 % (0-4.5); HEMATOCRIT 38.1 % (32.4-45.2); HEMOGLOBIN 11.9 GM/dL (10.7-15.3); LYMPH % 22.2 % (8-40); MCH 22.5 pg (25.7-33.7); MCHC 31.3 g/dl (32.0-36.0); MEAN CELL VOLUME 71.8 fl (80-96); MEAN PLT VOLUME 9.3 fl (7.5-11.1); MONO % 3.3 % (3.8-10.2); NEUT % 72.5 % (42.8-82.8); PLATELET COUNT 263 K/MM3 (134-434); RDW 16.3 % (11.6-15.6); WHITE BLOOD COUNT 9.4 K/mm3 (4.0-10.0)
[2018-05-08] MEDS ORDERED: ACETAMINOPHEN 325 MG TABLET (FP) ONE (10:44)
[2018-05-08] MEDS ORDERED: ONDANSETRON *ODT* 4 MG TABLET ONE (10:44)
[2018-05-08 10:45] LABS: URINE APPEARANCE CLOUDY; URINE BILIRUBIN NEGATIVE (<2.0 mg/dL); URINE COLOR RED; URINE GLUCOSE (UA) 2+ (NEGATIVE); URINE KETONE NEGATIVE (NEGATIVE); URINE LEUK ESTERASE TRACE (NEGATIVE); URINE NITRITE NEGATIVE (NEGATIVE); URINE PROTEIN 2+ (NEGATIVE); URINE UROBILINOGEN NEGATIVE mg/dL (0.2-1.0)
[2018-05-08 10:54] LABS: HCG,QUALITATIVE URINE Negative
[2018-05-08 11:30] LABS: ALBUMIN 3.4 g/dl (3.4-5.0); ALK PHOS 68 U/L (45-117); ANION GAP 6 MMOL/L (8-16); BILIRUBIN,TOTAL 0.3 mg/dL (0.2-1); BLOOD UREA NITROGEN 9 mg/dL (7-18); CALCIUM 8.6 mg/dL (8.5-10.1); CHLORIDE 102 mmol/L (98-107); CO2 27 mmol/L (21-32); CREATININE 0.6 mg/dL (0.55-1.3); GLUCOSE,RANDOM 206 mg/dL (74-106); POTASSIUM 4.5 mmol/L (3.5-5.1); SGOT/AST 17 U/L (15-37); SGPT/ALT 28 U/L (13-61); SODIUM 135 mmol/L (136-145); TOT PROT 7.4 g/dl (6.4-8.2)
[2018-05-08 13:40] VITALS: BP 116/61; PULSE 87
== END 2018-05-08 13:40 | disposition home or self-care (01) ==
LOC: JER 09:23
DX: N93.8 Other specified abnormal uterine and vaginal bleeding (principal); D25.9 Leiomyoma of uterus, unspecified; N83.209 Unspecified ovarian cyst, unspecified side; E11.9 Type 2 diabetes mellitus without complications; Z79.84 Long term (current) use of oral hypoglycemic drugs
CPT/HCPCS: 36415; 76830-TC; 80053; 81003; 81015; 84703; 85025; 86850; 86900; 86901; 87086; 99282-25

== ENCOUNTER 2022-03-20 18:09 | Emergency (ER) | payer BC ==
[2022-03-20 18:23] VITALS: BP 122/81; PULSE 88; RESP 18; TEMP 98; BMI 37.2
[2022-03-20] MEDS ORDERED: SODIUM CHLORIDE 0.9% 500 ML INFUS.BAG IV ONE (19:19)
[2022-03-20] MEDS ORDERED: METOCLOPRAMIDE HCL INJECTION 10 MG/2 ML VIAL IVPUSH ONE (19:19)
[2022-03-20] MEDS ORDERED: MECLIZINE HCL 25 MG TABLET (FP) PO ONE (19:20)
[2022-03-20] MEDS ORDERED: ACETAMINOPHEN 1000 MG/100 ML BAG IVPB ONE (19:20)
[2022-03-20] MEDS ORDERED: MECLIZINE HCL 25 MG TABLET (FP) ONE (19:22)
[2022-03-20] MEDS ORDERED: ACETAMINOPHEN INJECTION 100 ML IVPB ONE (19:23)
[2022-03-20] MEDS ORDERED: METOCLOPRAMIDE HCL INJECTION 10 MG/2 ML VIAL ONE (19:23)
[2022-03-20 19:42] LABS: EOS % 0.8 % (0-4.5); HEMATOCRIT 28.6 % (32.4-45.2); HEMOGLOBIN 8.3 GM/dL (10.7-15.3); MEAN CELL VOLUME 56.5 fl (80-96); MONO % 4.3 % (3.8-10.2); NEUT % 69.9 % (42.8-82.8); PLATELET COUNT 258 10^3/uL (134-434); RBC 5.07 M/mm3 (3.60-5.2); WHITE BLOOD COUNT 8.4 K/mm3 (4.0-10.0)
[2022-03-20 20:08] LABS: CALCIUM 8.7 mg/dL (8.5-10.1)
[2022-03-20 20:09] LABS: ALBUMIN 3.4 g/dl (3.4-5.0); BLOOD UREA NITROGEN 8.6 mg/dL (7-18)
[2022-03-20 20:12] LABS: CREATININE 0.6 mg/dL (0.55-1.3)
[2022-03-20 20:13] LABS: BILIRUBIN,TOTAL 0.2 mg/dL (0.2-1); TOT PROT 7.2 g/dl (6.4-8.2)
[2022-03-20 20:31] LABS: MCH 16.4 pg (25.7-33.7)
[2022-03-20 22:50] LABS: ANISOCYTOSIS 2+; MACROCYTOSIS 0; OVALOCYTE 1+; TEAR DROP CELLS 1+
== END 2022-03-20 22:28 | disposition home or self-care (01) ==
LOC: JER 18:09 → JERFT 18:09
PROC: 3E0333Z Introduction of Anti-inflammatory into Peripheral Vein, Percutaneous Approach (ICD-10-PCS; principal; 2022-03-20)
PROC: 3E033GC Introduction of Other Therapeutic Substance into Peripheral Vein, Percutaneous Approach (ICD-10-PCS; 2022-03-20)
DX: R42 Dizziness and giddiness (principal); J32.0 Chronic maxillary sinusitis
CPT/HCPCS: 36415; 70450-TC; 80053; 85025; 99284-25